=== PATIENT | female | born 1970 | race Caucasian/White ===

== ENCOUNTER → 2019-11-25 14:58 | Outpatient (BNVA) | payer MEDICAID, SELFPAY | PROVIDERS: Visit Provider Nurse Practitioner Family | DX: Z01.818 Encounter for other preprocedural examination (principal) | CPT/HCPCS: 99203 ==

== ENCOUNTER 2019-12-22 22:31 | Emergency (ER) | payer MEDICAID, SELFPAY ==
[2019-12-22 22:50] VITALS: BP 143/82; PULSE 89; RESP 16; TEMP 37.7; O2SAT 98; BMI 32.3
[2019-12-22 23:10] LABS: Glucose Urine UA NEG (NEG); Leukocyte Esterase Urine 2+ (NEG); Nitrite Urine NEG (NEG); PH 6.5 (5.0-8.0); Specific Gravity - Urine 1.015 (1.005-1.025); Urine Blood 3+ (NEG); Urine Ketones NEG (NEG); Urine Protein TRACE MG/DL (NEG-TRACE)
[2019-12-22 23:11] LABS: Appearance Urine HAZY; Color Urine YELLOW
[2019-12-22 23:25] LABS: Squamous Epithelial Cell Urine TRACE /LPF; WBC Urine TNTC /HPF (0-4)
[2019-12-23 00:29] LABS: MANUAL DIFF FLAG NO
--- NOTE | 2019-12-23 00:52 | PC.NURSE ---
MD at bedside with decorating instructor.
[2019-12-23 00:55] LABS: Alanine Aminotransferase 33 U/L (0-31); Albumin Level 4.5 g/dL (3.5-5.0); Alkaline Phosphatase 105 U/L (39-117); Anion Gap 13 (12-20); Aspartate Amino Transferase 26 U/L (5-31); Basophils Percent Auto 0.4 % (0-2); Bilirubin Total 0.4 mg/dL (0.0-1.0); Blood Urea Nitrogen 14 mg/dL (9-16); Calcium 9.6 mg/dL (8.4-10.2); Carbon Dioxide 29 mmol/L (22-29); Chloride 99 mmol/L (96-108); Creatinine Clr Calc Pharmacy 84.8; Eosinophils Absolute Auto 0.1 X10*3/uL (0.0-0.4); Eosinophils Percent Auto 1.8 % (0-4); Estimated Glomerular Filt Rate > 60; Glucose Random 100 mg/dL (60-115); Hematocrit 38.8 % (37-47); Hemoglobin 12.9 g/dl (12.0-16.0); Imm Gran Abs Auto 0.01 X10*3/uL (0.00-0.03); Imm Gran Pct Auto 0.1 % (0.0-0.4); Mean Corpuscular HGB Conc 33.2 g/dl (31.0-35.0); Mean Corpuscular Hemoglobin 29.9 pg (27.0-33.0); Mean Platelet Volume 8.9 fL (9.4-12.3); Monocytes Absolute Auto 0.5 X10*3/uL (0.1-1.2); Monocytes Percent Auto 6.7 % (2-11); Neutrophils Absolute Auto 4.7 X10*3/uL (2.0-8.3); Platelet Count 298 X10*3/uL (160-400); Potassium 3.6 mmol/l (3.3-5.1); Red Blood Count 4.31 X10*6/uL (4.20-5.50); Red Cell Distribution Width 13.2 % (11.0-16.0); Sodium 137 mmol/L (135-145); Total Protein 7.8 g/dL (6.5-8.0); White Blood Count 7.3 X10*3/uL (4.8-10.8)
[2019-12-23 00:58] VITALS: BP 128/80; PULSE 80; RESP 16; TEMP 37.1; O2SAT 99
--- NOTE | 2019-12-23 00:58 | ED_ITS ---
HPI - Female Genitourinary General Chief complaint: Urogenital-Female Stated complaint: blood in urine Time Seen by Provider: 12/23/19 00:18 Source: patient and director of corporate sales Mode of arrival: ambulatory Limitations: no limitations History of Present Illness HPI Narrative: This is a 49-year-old female who presents with 3 days pain on urination that is associated with observed blood but she denies any back pain, fevers, chills, nausea, vomiting, vaginal discharge, diarrhea. Related Data Home Medications Medication Instructions Recorded Confirmed chlorthalidone 25 mg tablet 25 mg PO DAILY 11/25/19 11/25/19 loratadine 10 mg tablet 10 mg PO DAILY 11/25/19 11/25/19 omeprazole 20 mg capsule,delayed 20 mg PO DAILY 11/25/19 11/25/19 release Previous Rx's Medication Instructions Recorded peg 3350-electrolytes 227.1 240 ml PO Q10M #1 ea 11/26/19 gram-21.5 gram-6.36gram oral powder packet ciprofloxacin HCl [Cipro] 500 mg PO Q12H 7 Days #14 tab 12/23/19 phenazopyridine [Pyridium] 200 mg PO TID #6 tab 12/23/19 Allergies Allergy/AdvReac Type Severity Reaction Status Date / Time No Known Allergies Allergy Verified 12/22/19 22:50 [No Known Allergies*] Review of Systems Review of Systems: Pertinent positives and negatives as stated in HPI 10 point review of systems is otherwise negative. [facility] Past Medical History Source: nursing notes reviewed Medical History GERD (gastroesophageal reflux disease) HTN (hypertension) Surgical History History of cholecystectomy Hx of section Hx of tubal ligation Family History Family History Mother HX: breast cancer Hx of diabetes mellitus Father No problems noted. Maternal Aunt Cancer Hypothyroidism Heart disease Social History Social History Household Members: Spouse Alcohol intake: never Smoking Status: Former smoker Advance Directives: No service: No Current occupational status: unemployed Physical Exam Vital Signs: Vital Signs: Last Vital Signs Temp 98.8 F 12/23/19 00:58 Pulse 80 12/23/19 00:58 Resp 16 12/23/19 00:58 BP 128/80 12/23/19 00:58 Pulse Ox 99 12/23/19 00:58 Body Mass Index 32.3 VITAL SIGNS: Reviewed. GENERAL: Well developed, well nourished, in no acute distress. HEAD: Normocephalic/atraumatic, EYES: PERRLA, EOMI intact without pain, no nystagmus/pallor/icterus noted EARS: Ext canals without abnormality, TMs non-bulging and non-erythematous NOSE: Nares patent bilateral OROPHARYNX: no oral lesions noted, posterior pharynx clear and non-erythematous without noted tonsillar enlargement/erythema/exudates NECK: Supple, no adenopathy LUNGS: Normal breath sounds. No adventitious sounds or accessory muscle use. SpO2<99> CARDIOVASCULAR: Regular rate and rhythm without noted murmurs, no JVD or lower extremity edema. ABDOMEN: Soft, non-tender, non-distended with bowel sounds. No rigidity. No guarding. No palpable masses or hernias noted MUSCULOSKELETAL: No tenderness, deformities, or effusions noted on gross inspection. EXTREMITIES: No cyanosis, clubbing or edema. SKIN: Inspection of the skin reveals no rashes, ulcerations, jaundice, pallor, or petechiae. NEUROLOGIC: Alert and oriented x 4. Strength and sensation to light touch were grossly intact x 4. Course Course Course Narrative: This is a 49-year-old female with history and clinical presentation most consistent with UTI, vaginitis, but doubt diverticulitis /appendicitis /renal colic. Review of urinalysis is grossly positive for blood /leukocyte esterase /wbc's. otherwise, review of other investigations is negative for any acute findings. MDM - Female Genitourinary Lab Data Result diagrams: 12/23/19 00:21 12/23/19 00:21 Labs: Lab Results 12/22/19 12/23/19 12/23/19 Range/Units 23:03 00:21 00:21 WBC 7.3 (4.8-10.8) X10*3/uL RBC 4.31 (4.20-5.50) X10*6/uL Hgb 12.9 (12.0-16.0) g/dl Hct 38.8 (37-47) % MCV 90.0 (80-98) fL MCH 29.9 (27.0-33.0) pg MCHC 33.2 (31.0-35.0) g/dl RDW 13.2 (11.0-16.0) % Plt Count 298 (160-400) X10*3/uL MPV 8.9 L (9.4-12.3) fL Immature Gran % (Auto) 0.1 (0.0-0.4) % Neut % (Auto) 64.0 (45-73) % Lymph % (Auto) 27.0 (20-40) % [place] % (Auto) 6.7 (2-11) % Eos % (Auto) 1.8 (0-4) % Baso % (Auto) 0.4 (0-2) % Lymph # (Auto) 2.0 (1.2-4.9) X10*3/uL [place] # (Auto) 0.5 (0.1-1.2) X10*3/uL Eos # (Auto) 0.1 (0.0-0.4) X10*3/uL Baso # (Auto) 0.0 (0.0-0.2) X10*3/uL Abs Immat Gran (auto) 0.01 (0.00-0.03) X10*3/uL Absolute Neuts (auto) 4.7 (2.0-8.3) X10*3/uL Absolute Nucleated RBC 0.000 (0.0-0.012) X10*3/uL Nucleated RBC % (auto) 0.0 (0.0-0.2) /100WBC Hold Blue Top SEE NOTE Sodium (135-145) mmol/L Potassium (3.3-5.1) mmol/l Chloride (96-108) mmol/L Carbon Dioxide (22-29) mmol/L Anion Gap (12-20) BUN (9-16) mg/dL Creatinine (0.5-1.4) mg/dL Estim Creat Clear Calc Estimated GFR Random Glucose (60-115) mg/dL Calcium (8.4-10.2) mg/dL Total Bilirubin (0.0-1.0) mg/dL AST (5-31) U/L ALT (0-31) U/L Alkaline Phosphatase (39-117) U/L Total Protein (6.5-8.0) g/dL Albumin (3.5-5.0) g/dL Urine Color YELLOW Urine Appearance HAZY Urine pH 6.5 (5.0-8.0) Ur Specific [place] 1.015 (1.005-1.025) Urine Protein TRACE (NEG-TRACE) MG/DL Urine Glucose (UA) NEG (NEG) MG/DL Urine Ketones NEG (NEG) MG/DL Urine Blood 3+ H (NEG) Urine Nitrite NEG (NEG) Ur Leukocyte Esterase 2+ H (NEG) Urine RBC 76-150 H (0) /HPF Urine WBC TNTC H (0-4) /HPF Ur Squamous Epith Cells TRACE /LPF Urine Bacteria NONE /LPF 12/23/19 Range/Units 00:21 WBC (4.8-10.8) X10*3/uL RBC (4.20-5.50) X10*6/uL Hgb (12.0-16.0) g/dl Hct (37-47) % MCV (80-98) fL MCH (27.0-33.0) pg MCHC (31.0-35.0) g/dl RDW (11.0-16.0) % Plt Count (160-400) X10*3/uL MPV (9.4-12.3) fL Immature Gran % (Auto) (0.0-0.4) % Neut % (Auto) (45-73) % Lymph % (Auto) (20-40) % [place] % (Auto) (2-11) % Eos % (Auto) (0-4) % Baso % (Auto) (0-2) % Lymph # (Auto) (1.2-4.9) X10*3/uL [place] # (Auto) (0.1-1.2) X10*3/uL Eos # (Auto) (0.0-0.4) X10*3/uL Baso # (Auto) (0.0-0.2) X10*3/uL Abs Immat Gran (auto) (0.00-0.03) X10*3/uL Absolute Neuts (auto) (2.0-8.3) X10*3/uL Absolute Nucleated RBC (0.0-0.012) X10*3/uL Nucleated RBC % (auto) (0.0-0.2) /100WBC Hold Blue Top Sodium 137 (135-145) mmol/L Potassium 3.6 (3.3-5.1) mmol/l Chloride 99 (96-108) mmol/L Carbon Dioxide 29 (22-29) mmol/L Anion Gap 13 (12-20) BUN 14 (9-16) mg/dL Creatinine 0.90 (0.5-1.4) mg/dL Estim Creat Clear Calc 84.8 Estimated GFR > 60 Random Glucose 100 (60-115) mg/dL Calcium 9.6 (8.4-10.2) mg/dL Total Bilirubin 0.4 (0.0-1.0) mg/dL AST 26 (5-31) U/L ALT 33 H (0-31) U/L Alkaline Phosphatase 105 (39-117) U/L Total Protein 7.8 (6.5-8.0) g/dL Albumin 4.5 (3.5-5.0) g/dL Urine Color Urine Appearance Urine pH (5.0-8.0) Ur Specific [place] (1.005-1.025) Urine Protein (NEG-TRACE) MG/DL Urine Glucose (UA) (NEG) MG/DL Urine Ketones (NEG) MG/DL Urine Blood (NEG) Urine Nitrite (NEG) Ur Leukocyte Esterase (NEG) Urine RBC (0) /HPF Urine WBC (0-4) /HPF Ur Squamous Epith Cells /LPF Urine Bacteria /LPF Discharge Plan Discharge Clinical Impression: Urinary tract infection Qualifiers: Urinary tract infection type: acute cystitis Hematuria presence: with hematuria Qualified Code(s): N30.01 - Acute cystitis with hematuria Patient Disposition: Home, Self-Care Instructions: Urinary Tract Infection in Women (ED) Additional Instructions: 1. Tylenol 1000 mg, por v?a oral, cada 6 horas seg?n sea necesario para controlar el dolor. No exceda los 4000 mg en 24 horas. 2. ibuprofeno 400 mg, por v?a oral con leche o alimentos, cada 6 horas seg?n sea necesario para controlar el dolor. 3. Incrementar la hidrataci?n de los fluidos especialmente con agua. El paciente y / o la gareth reconocen kirsten comprendido los resultados (seg?n corresponda), el diagn?stico, el plan de tratamiento, la necesidad de seguimiento y los s?ntomas que deber?an impulsar el regreso a la silvio de emergencias. Prescriptions: New ciprofloxacin HCl [Cipro] 500 mg tablet 500 mg PO Q12H 7 Days Qty: 14 RF: 0 phenazopyridine [Pyridium] 200 mg tablet 200 mg PO TID Qty: 6 RF: 0 No Action chlorthalidone 25 mg tablet 25 mg PO DAILY RF: 0 omeprazole 20 mg capsule,delayed release(DR/EC) 20 mg PO DAILY RF: 0 loratadine [Allergy Relief (loratadine)] 10 mg tablet 10 mg PO DAILY RF: 0 Golytely 227.1-21.5-6.36 gram powder in packet 240 ml PO Q10M Qty: 1 RF: 0 Referrals: Physician,Unknown [Primary Care Provider] - 2 days ( follow-up UTI) Interventions: ED Discharge Assessment Last Done: 12/23/19 01:22 Discharge Date/Time: 12/23/19 01:24 Print Language: Frisian
[2019-12-23] MEDS: levoFLOXacin 500 MG TABLET PO (01:14)
[2019-12-23] MEDS: Phenazopyridine HCL 200 MG TABLET PO (01:14)
[2019-12-23] MEDS: Acetaminophen 325 MG TABLET 975 MG PO (01:14)
--- NOTE | 2019-12-23 01:15 | PC.NURSE ---
Pt medicated per EMAR, awaiting engraving operator for DC instructions.
== END 2019-12-23 01:24 | disposition home or self-care (01) ==
PROVIDERS: Emergency Provider Student in an Organized Health Care Education/Training Program
DX: N30.01 Acute cystitis with hematuria (principal); R30.0 Dysuria; Z87.891 Personal history of nicotine dependence; Z79.899 Other long term (current) drug therapy
CPT/HCPCS: 36415; 80053; 81001; 85025; 87086; 99283; 99284

== ENCOUNTER 2020-01-22 18:52 | Emergency (ER) | payer MEDICAID, SELFPAY ==
[2020-01-22 19:01] VITALS: BP 118/77; PULSE 105; RESP 18; TEMP 37.3; O2SAT 95; BMI 32.3
--- NOTE | 2020-01-22 19:10 | ED.URI ---
HPI - URI/Sore Throat General Chief Complaint: Upper Respiratory Symptoms Stated Complaint: Flu Like Symptoms Time Seen by Provider: 01/22/20 19:10 Source: patient Mode of arrival: ambulatory Limitations: no limitations History of Present Illness MD elicited complaint: fever and other (headache, body aches) Pertinent past history: other (positive for COVID in June) Onset (ago): day(s) Consistency: constant Severity: similar to previous episodes (feels just like in June when she had COVID) Description of mucous: clear Able to tolerate fluids by mouth: Yes Exacerbating factors: nothing Relieving factors: nothing Associated symptoms: chills, myalgias and headache Treatments prior to arrival: none Related Data Home Medications Medication Instructions Recorded Confirmed chlorthalidone 25 mg tablet 25 mg PO DAILY 11/25/19 11/25/19 loratadine 10 mg tablet 10 mg PO DAILY 11/25/19 11/25/19 omeprazole 20 mg capsule,delayed 20 mg PO DAILY 11/25/19 11/25/19 release Previous Rx's Medication Instructions Recorded peg 3350-electrolytes 227.1 240 ml PO Q10M #1 ea 11/26/19 gram-21.5 gram-6.36gram oral powder packet ciprofloxacin HCl [Cipro] 500 mg PO Q12H 7 Days #14 tab 12/23/19 phenazopyridine [Pyridium] 200 mg PO TID #6 tab 12/23/19 Allergies Allergy/AdvReac Type Severity Reaction Status Date / Time No Known Allergies Allergy Verified 12/22/19 22:50 [No Known Allergies*] Review of Systems Review of Systems: Constitutional : positive Fever, positive Chills, positive fatigue, positive Malaise ENT/Mouth : no sore throat, positive runny nose Eyes: No Discharge Cardiovascular : No Chest Pain, No SOB Respiratory : No Cough, No Sputum Gastrointestinal : No Nausea, No Vomiting, No Diarrhea Genitourinary : No Dysuria, No Urinary Frequency Musculoskeletal : positive Myalgia Skin : No rash Neuro : pos Headache PMFSH Past Medical History Attestation statement: The following information was validated with the patient. Medical History GERD (gastroesophageal reflux disease) HTN (hypertension) Surgical History History of cholecystectomy Hx of section Hx of tubal ligation Family History Family History Mother HX: breast cancer Hx of diabetes mellitus Father No problems noted. Maternal Aunt Cancer Hypothyroidism Heart disease Social History Social History Household Members: Spouse Alcohol intake: never Smoking Status: Former smoker Smoked in Last 30 Days: No Use of substances other than those prescribed or required for medical reasons: No Advance Directives: No Advance Directives Information Provided: No service: No Current occupational status: unemployed Physical Exam Vital Signs: Vital Signs: Last Vital Signs Temp 99.1 F 01/22/20 19:01 Pulse 105 H 01/22/20 19:01 Resp 18 01/22/20 19:01 BP 118/77 01/22/20 19:01 Pulse Ox 95 01/22/20 19:12 Body Mass Index 32.3 Appearance: Alert. Oriented X3. No acute distress. Eyes: Pupils equal, round and reactive to light. ENT: Pharynx normal. Neck: Normal inspection. Neck supple. CVS: Normal heart rate and rhythm. Pulses normal. Chest: has healing pimple without abscess or cellulitis on chest wall Respiratory: No respiratory distress. Breath sounds normal. Abdomen: Soft and non-tender. Skin: Skin warm and dry. Normal skin color. Normal skin turgor. Extremities: No lower extremity edema. No calf ttp Neuro: Oriented X 3. No motor deficit. No sensory deficit. Course Course Course Narrative: negative flu/COVID MDM - URI/Sore Throat MDM Narrative Medical decision making narrative: 49 yo female who was COVID positive in June now comes in today with viral like illness body aches, headaches, fevers x 3 days and states she feels the exact same as she did in June when she had COVID at this time will obtain COVID/flu swab, not toxic, no resp distress, no hypoxia Lab Data Labs: Lab Results 01/22/20 Range/Units 19:16 Coronavirus (PCR) NEGATIVE (Negative) Influenza Type A (PCR) NEGATIVE (Negative) Influenza Type B (PCR) NEGATIVE (Negative) RSV RNA Qual (PCR) NEGATIVE (Negative) Discharge Plan Discharge Clinical Impression: Viral infection Patient Disposition: Home, Self-Care Instructions: Viral Syndrome (ED) Additional Instructions: return to ED for any worsening symptoms or concerns YOUR COVID FLU AND RSV WERE NEGATIVE TODAY Prescriptions: No Action ciprofloxacin HCl [Cipro] 500 mg tablet 500 mg PO Q12H 7 Days Qty: 14 RF: 0 phenazopyridine [Pyridium] 200 mg tablet 200 mg PO TID Qty: 6 RF: 0 chlorthalidone 25 mg tablet 25 mg PO DAILY RF: 0 omeprazole 20 mg capsule,delayed release(DR/EC) 20 mg PO DAILY RF: 0 loratadine [Allergy Relief (loratadine)] 10 mg tablet 10 mg PO DAILY RF: 0 Golytely 227.1-21.5-6.36 gram powder in packet 240 ml PO Q10M Qty: 1 RF: 0 Referrals: Physician,Unknown [Primary Care Provider] - 2 days (if not better) Stand Alone Forms: Work/School Release Print Language: Uzbek
[2020-01-22 19:12] VITALS: O2SAT 95
[2020-01-22] MEDS: Acetaminophen 325 MG TABLET 650 MG PO (19:45)
[2020-01-22 20:05] LABS: Influenza A PCR NEGATIVE (Negative); Influenza B PCR NEGATIVE (Negative); Resp Syncy Virus RNA Qual PCR NEGATIVE (Negative); SARS COV2 PCR INHOUSE NEGATIVE (Negative)
== END 2020-01-22 20:25 | disposition home or self-care (01) ==
PROVIDERS: Emergency Provider Emergency Medicine
DX: B34.9 Viral infection, unspecified (principal); R50.9 Fever, unspecified; R51.9 Headache, unspecified; M79.10 Myalgia, unspecified site; Z20.828 Contact with and (suspected) exposure to other viral communicable diseases; Z87.891 Personal history of nicotine dependence
CPT/HCPCS: 0241U; 99284

== ENCOUNTER 2020-08-04 14:18 | Outpatient (REF) | payer MEDICAID, SELFPAY ==
--- NOTE | ~2020-08-04 | MM_ITS ---
EXAMINATION: MM SCREENING DIGITAL BREAST TOMOSYNTHESIS, BILATERAL CLINICAL INFORMATION: Screening. Asymptomatic. The lifetime risk of breast cancer based on the Tyrer-Cuzick Model is 13.3%. COMPARISON: Mammography: July 30, 2019 and studies dating back to May 04, 2011 TECHNIQUE: Digital breast tomosynthesis is performed in both the craniocaudal and mediolateral oblique views along with computer-aided detection (CAD). Synthesized 2D images are generated from the tomosynthesis. FINDINGS: The breasts are heterogeneously dense, which may obscure small masses (ACR BI-RADS breast composition Category c). There are no significant masses, abnormal calcifications, or other abnormalities. MM/MM tomosynthesis screening BI IMPRESSION: There are no significant changes from prior study. ASSESSMENT: BI-RADS 1: Negative RECOMMENDATION: Routine annual mammography screening. This patient's information was entered into a reminder system with a target due date for their next mammogram.
== END 2020-08-04 14:19 | disposition home or self-care (01) ==
LOC: HO.MAMMO 14:18
PROVIDERS: PCP Family Medicine; Visit Provider Advanced Practice Midwife
DX: Z12.31 Encounter for screening mammogram for malignant neoplasm of breast (principal)
CPT/HCPCS: 77063; 77067

== ENCOUNTER 2020-08-16 18:03 | Emergency (ER) | payer MEDICAID, SELFPAY ==
[2020-08-16 19:54] VITALS: BP 135/75; PULSE 73; RESP 16; TEMP 37; O2SAT 98; BMI 20.8
--- NOTE | 2020-08-16 21:00 | PC.NURSE ---
CALLED PATIENT NO RESPONSE.
== END 2020-08-16 21:00 | disposition left against medical advice (07) ==
LOC: HO.ED 20:52
PROVIDERS: Emergency Provider Emergency Medicine
DX: M79.89 Other specified soft tissue disorders (principal)
CPT/HCPCS: 36415; 80048; 83605; 85025; 85652; 86140; 87040; 99281; 99282; 99285; J1170; J2270; J2543

== ENCOUNTER 2020-08-16 23:28 | Inpatient (IN) | payer MEDICAID, SELFPAY ==
[2020-08-16 23:33] VITALS: BP 143/84; PULSE 77; RESP 16; TEMP 36.7; O2SAT 98; BMI 33.1
[2020-08-17] VITALS (9 sets, daily range): BP systolic 98–138; BP diastolic 45–86; PULSE 64–79; RESP 16–18; TEMP 36–37.1; O2SAT 94–99
[2020-08-17 00:58] LABS: MANUAL DIFF FLAG NO
[2020-08-17 01:01] LABS: Basophils Percent Auto 0.5 % (0-2); Eosinophils Absolute Auto 0.1 X10*3/uL (0.0-0.4); Eosinophils Percent Auto 1.4 % (0-4); Hematocrit 40.3 % (37-47); Hemoglobin 13.7 g/dl (12.0-16.0); Imm Gran Abs Auto 0.02 X10*3/uL (0.00-0.03); Imm Gran Pct Auto 0.2 % (0.0-0.4); Lymphocytes Absolute Auto 2.2 X10*3/uL (1.2-4.9); Lymphocytes Percent Auto 24.6 % (20-40); Mean Corpuscular Hemoglobin 30.4 pg (27.0-33.0); Mean Corpuscular Volume 89.6 fL (80-98); Mean Platelet Volume 8.6 fL (9.4-12.3); Monocytes Absolute Auto 0.6 X10*3/uL (0.1-1.2); Monocytes Percent Auto 6.9 % (2-11); Neutrophils Absolute Auto 5.9 X10*3/uL (2.0-8.3); Neutrophils Percent Auto 66.4 % (45-73); Platelet Count 331 X10*3/uL (160-400); Red Cell Distribution Width 13.5 % (11.0-16.0); White Blood Count 8.8 X10*3/uL (4.8-10.8)
[2020-08-17 01:15] LABS: Lactic Acid 0.7 mmol/L (0.5-2.0)
[2020-08-17 01:32] LABS: Anion Gap 16 (12-20); Blood Urea Nitrogen 12 mg/dL (9-16); Calcium 10.2 mg/dL (8.4-10.2); Carbon Dioxide 26 mmol/L (22-29); Chloride 101 mmol/L (96-108); Estimated Glomerular Filt Rate > 60; Glucose Random 100 mg/dL (60-115); Potassium 3.5 mmol/L (3.3-5.1); Sodium 139 mmol/L (135-145)
[2020-08-17 01:36] LABS: Erythrocyte Sedimentation Rate 60 MM/HR (0-20)
--- NOTE | 2020-08-17 01:54 | ED.ANIMALBIT ---
HPI - Animal Bite General Chief Complaint: Animal Bite Stated Complaint: general medical, pt lwt previously Time Seen by Provider: 08/16/20 23:58 Source: patient Mode of arrival: ambulatory Limitations: no limitations History of Present Illness HPI narrative: Patient comes emergency room complaining of a dog bites to the dorsal aspect of the 5th finger on the right hand. Patient states that she was at home with her dog grooming her, the dog bit her in the hand yesterday. The patient states that she immediately washed her hands and port alcohol over it. Today she came to the hospital because the hand is becoming more swollen, and tender to palpation. Patient has no fever, no chills, patient complaining of pus drainage from the pinky finger. The patient states that her dog is up-to-date with immunizations. MD complaint: animal bite Related Data Home Medications Medication Instructions Recorded Confirmed chlorthalidone 25 mg tablet 25 mg PO DAILY 11/25/19 11/25/19 loratadine 10 mg tablet 10 mg PO DAILY 11/25/19 11/25/19 omeprazole 20 mg capsule,delayed 20 mg PO DAILY 11/25/19 11/25/19 release Previous Rx's Medication Instructions Recorded peg 3350-electrolytes 227.1 240 ml PO Q10M #1 ea 11/26/19 gram-21.5 gram-6.36gram oral powder packet ciprofloxacin HCl [Cipro] 500 mg PO Q12H 7 Days #14 tab 12/23/19 phenazopyridine [Pyridium] 200 mg PO TID #6 tab 12/23/19 Allergies Allergy/AdvReac Type Severity Reaction Status Date / Time No Known Allergies Allergy Verified 08/16/20 23:33 [No Known Allergies*] Review of Systems Review of Systems: Constitutional : No Weight loss, No Fever, No Chills, No Night Sweats, No Fatigue, No Malaise ENT/Mouth : No Hearing loss, No Ear Pain, No Nasal Congestion, No Sinus Pain, No Hoarseness, No sore throat, No Rhinorrhea, No Swallowing Difficulty Eyes: No Eye Pain, No Swelling, No Redness, No Foreign Body, No Discharge, No Vision Changes Cardiovascular : No Chest Pain, No SOB, No Dyspnea on Exertion, No Orthopnea, No Edema, No Palpitations Respiratory : No Cough, No Sputum, No Wheezing, No Smoke Exposure, No Dyspnea Gastrointestinal : No Nausea, No Vomiting, No Diarrhea, No Constipation, No abdominal Pain, No Hematochezia, No Melena Genitourinary : no irregular bleeding, No Dysuria, No Urinary Frequency, No Hematuria, No Urinary Incontinence, No Urgency, No Flank Pain, No Urinary Flow Changes, No Hesitancy Musculoskeletal : No joint pain, No Myalgias, No Joint Swelling Skin : Pus drainage, swelling and erythema from the lateral dorsal aspect of the right hand Neuro : No Weakness, No Numbness, No Paresthesias, No Loss of Consciousness, No Dizziness, No Headache Psych : No Anxiety/Panic, No Depression, No SI/HI/AH/VH, No Social Issues, Heme/Lymph: No Bruising, No Bleeding,No Lymphadenopathy Endocrine : No Polyuria, No Polydipsia, No Temperature Intolerance [facility] Past Medical History Medical History GERD (gastroesophageal reflux disease) HTN (hypertension) Surgical History History of cholecystectomy Hx of section Hx of tubal ligation Family History Family History Mother HX: breast cancer Hx of diabetes mellitus Father No problems noted. Maternal Aunt Cancer Hypothyroidism Heart disease Social History Social History Household Members: Spouse Alcohol intake: never Advance Directives: No Advance Directives Information Provided: No service: No Current occupational status: unemployed Physical Exam Vital Signs: Vital Signs: Last Vital Signs Temp 98.1 F 08/16/20 23:33 Pulse 77 08/16/20 23:33 Resp 16 08/16/20 23:33 BP 143/84 H 08/16/20 23:33 Pulse Ox 98 08/16/20 23:33 Body Mass Index 33.1 Appearance: Alert. Oriented X3. No acute distress. Eyes: Pupils equal, round and reactive to light. ENT: Pharynx normal. Neck: Normal inspection. Neck supple. No lymph nodes noted. No crepitus CVS: Normal heart rate and rhythm. Pulses normal. Normal S1 and S2 Respiratory: No respiratory distress. Breath sounds normal. No Wheezing. No rales Abdomen: Soft and nontender. No rigidity. No distention. good BS x4 Skin: Right hand dorsal aspect lateral aspect, 0.5 cm punctured wound, draining pus, dorsal aspect of the hand is swollen and erythematous Extremities: No lower extremity edema. No lower extremity edema. No Lacerations. No Rash Neuro: Oriented X 3. No motor deficit. No sensory deficit. Moving all extermities. No slurred speech. Course Course Course Narrative: When patient arrived to the emergency room, the hand was not erythematous, is mildly swollen, throughout the last 2-3 hours the swelling and erythema progressed significantly. The puncture wound was unroofed with a 16 gauge needle, pus was drained. Patient is to flex and extend the 5th finger but hurts doing so. At this time, tenosynovitis is not suspected. Patient does not have and significant white blood cell count, however the erythema is expanding fairly fast and the finger is draining pus. I discussed the above-mentioned with Dr. mandy beckman, patient will be admitted to the hospital. MDM - Animal Bite Lab Data Result diagrams: 08/17/20 00:47 08/17/20 00:47 Labs: Lab Results 08/17/20 08/17/20 08/17/20 Range/Units 00:47 00:47 00:47 WBC 8.8 (4.8-10.8) X10*3/uL RBC 4.50 (4.20-5.50) X10*6/uL Hgb 13.7 (12.0-16.0) g/dl Hct 40.3 (37-47) % MCV 89.6 (80-98) fL MCH 30.4 (27.0-33.0) pg MCHC 34.0 (31.0-35.0) g/dl RDW 13.5 (11.0-16.0) % Plt Count 331 (160-400) X10*3/uL MPV 8.6 L (9.4-12.3) fL Immature Gran % (Auto) 0.2 (0.0-0.4) % Neut % (Auto) 66.4 (45-73) % Lymph % (Auto) 24.6 (20-40) % [place] % (Auto) 6.9 (2-11) % Eos % (Auto) 1.4 (0-4) % Baso % (Auto) 0.5 (0-2) % Lymph # (Auto) 2.2 (1.2-4.9) X10*3/uL [place] # (Auto) 0.6 (0.1-1.2) X10*3/uL Eos # (Auto) 0.1 (0.0-0.4) X10*3/uL Baso # (Auto) 0.0 (0.0-0.2) X10*3/uL Abs Immat Gran (auto) 0.02 (0.00-0.03) X10*3/uL Absolute Neuts (auto) 5.9 (2.0-8.3) X10*3/uL Absolute Nucleated RBC 0.000 (0.0-0.012) X10*3/uL Nucleated RBC % (auto) 0.0 (0.0-0.2) /100WBC ESR (0-20) MM/HR Sodium 139 (135-145) mmol/L Potassium 3.5 (3.3-5.1) mmol/L Chloride 101 (96-108) mmol/L Carbon Dioxide 26 (22-29) mmol/L Anion Gap 16 (12-20) BUN 12 (9-16) mg/dL Creatinine 0.82 (0.5-1.4) mg/dL Estim Creat Clear Calc 91.0 Estimated GFR > 60 Random Glucose 100 (60-115) mg/dL Lactic Acid 0.7 (0.5-2.0) mmol/L Calcium 10.2 D (8.4-10.2) mg/dL C-Reactive Protein 5.20 H (< or = 0.50) mg/dL 08/17/20 Range/Units 00:47 WBC (4.8-10.8) X10*3/uL RBC (4.20-5.50) X10*6/uL Hgb (12.0-16.0) g/dl Hct (37-47) % MCV (80-98) fL MCH (27.0-33.0) pg MCHC (31.0-35.0) g/dl RDW (11.0-16.0) % Plt Count (160-400) X10*3/uL MPV (9.4-12.3) fL Immature Gran % (Auto) (0.0-0.4) % Neut % (Auto) (45-73) % Lymph % (Auto) (20-40) % [place] % (Auto) (2-11) % Eos % (Auto) (0-4) % Baso % (Auto) (0-2) % Lymph # (Auto) (1.2-4.9) X10*3/uL [place] # (Auto) (0.1-1.2) X10*3/uL Eos # (Auto) (0.0-0.4) X10*3/uL Baso # (Auto) (0.0-0.2) X10*3/uL Abs Immat Gran (auto) (0.00-0.03) X10*3/uL Absolute Neuts (auto) (2.0-8.3) X10*3/uL Absolute Nucleated RBC (0.0-0.012) X10*3/uL Nucleated RBC % (auto) (0.0-0.2) /100WBC ESR 60 H (0-20) MM/HR Sodium (135-145) mmol/L Potassium (3.3-5.1) mmol/L Chloride (96-108) mmol/L Carbon Dioxide (22-29) mmol/L Anion Gap (12-20) BUN (9-16) mg/dL Creatinine (0.5-1.4) mg/dL Estim Creat Clear Calc Estimated GFR Random Glucose (60-115) mg/dL Lactic Acid (0.5-2.0) mmol/L Calcium (8.4-10.2) mg/dL C-Reactive Protein (< or = 0.50) mg/dL Discharge Plan Discharge Clinical Impression: Cellulitis, Dog bite Patient Disposition: Admitted As Inpatient Prescriptions: No Action ciprofloxacin HCl [Cipro] 500 mg tablet 500 mg PO Q12H 7 Days Qty: 14 RF: 0 phenazopyridine [Pyridium] 200 mg tablet 200 mg PO TID Qty: 6 RF: 0 chlorthalidone 25 mg tablet 25 mg PO DAILY RF: 0 omeprazole 20 mg capsule,delayed release(DR/EC) 20 mg PO DAILY RF: 0 loratadine [Allergy Relief (loratadine)] 10 mg tablet 10 mg PO DAILY RF: 0 Golytely 227.1-21.5-6.36 gram powder in packet 240 ml PO Q10M Qty: 1 RF: 0
[2020-08-17] MEDS: Piperacillin Sodium/Tazobactam 3.375 GM in 0.9 % Sodium Chloride 50 ML IV ×4 (02:30→21:17)
[2020-08-17] MEDS: 0.9 % Sodium Chloride 1,000 ML 999 ML IVCONT (02:35)
--- NOTE | 2020-08-17 03:30 | PC.NURSE ---
pt crying in pain. hospitalist aware and ordered pain meds for pt. Pt remains alert, respiraitons easy,n/l. skin w/d. Pt awaiting for room assignment. will continue to monitor pt.
[2020-08-17] MEDS: Morphine Sulfate 4 MG/ML CARTRIDGE IVPUSH (03:41)
--- NOTE | 2020-08-17 05:25 | P.HPHOSP_ITS ---
History of Present Illness Date of Service: 08/17/20 Chief Complaint: Dog bite 49-year-old female with past medical history of hypertension who presents to the hospital with complaints of dog bite. Patient reports that her dog bit her on Sunday, in her right small finger, she started developing significant pain, as well as swelling of her right arm and decided to come to the hospital. Patient has a difficulty moving her hand due to the pain, denies any fever nausea vomiting no abdominal pain no chest pain, no shortness of breath, no lumps under her armpits, no trouble with moving her elbow. Denies any urinary symptoms and no lower extremity edema. No numbness weakness or tingling. On arrival to the ED patient hemodynamically stable with no significant abnormal vitals except for a heart rate of 105, blood pressure stable Labs are significant for WBC count of 8.8 otherwise unremarkable. She has an elevated ESR of 60 as well as CRP of 5.2. During her ED course, erythema increased from around her right small finger moving up to her wrist patient is also having significant pain intractable to pain medications Review of Systems Review of Systems: Yes all other systems are reviewed and are negative [facility] Medical History GERD (gastroesophageal reflux disease) HTN (hypertension) Family History Mother HX: breast cancer Hx of diabetes mellitus Father No problems noted. Maternal Aunt Cancer Hypothyroidism Heart disease Surgical History History of cholecystectomy Hx of section Hx of tubal ligation Social History Household Members: Spouse Alcohol intake: never Advance Directives: No Advance Directives Information Provided: No service: No Current occupational status: unemployed Meds Allergies Allergy/AdvReac Type Severity Reaction Status Date / Time No Known Allergies Allergy Verified 08/16/20 23:33 [No Known Allergies*] Active Medications: Current Medications Generic Name Dose Route Start Last Admin Trade Name Freq PRN Reason Stop Dose Admin Acetaminophen 650 mg 08/17/20 01:53 Acetaminophen 325 Mg Tablet PO Q6H PRN Pain, Mild (Pain Scale 1-3) Piperacillin Sod/Tazobactam 50 mls @ 100 mls/hr 08/17/20 08:00 Sod 3.375 gm/ Sodium Chloride IV Q6H COUNTS INCLUDE 234 BEDS AT THE [facility] Morphine Sulfate 4 mg 08/17/20 03:27 08/17/20 03:41 Morphine Sulfate 4 Mg/Ml Cartridge IVPUSH 4 mg Q4H PRN Administration Pain, Severe (Pain Scale 7-10) Ondansetron HCl 4 mg 08/17/20 01:53 Ondansetron Hcl 4 Mg/2 Ml Vial IVPUSH Q8H PRN Nausea and Vomiting Sodium Chloride 3 ml 08/17/20 08:00 0.9 % Sodium Chloride Flush 3 Ml Syringe IVFLUSH QSHIFT COUNTS INCLUDE 234 BEDS AT THE [facility] Home Medications Medication Instructions Recorded Confirmed Last Taken Type chlorthalidone 25 mg tablet 25 mg PO DAILY 11/25/19 08/17/20 Unknown History loratadine 10 mg tablet 10 mg PO DAILY 11/25/19 08/17/20 Unknown History omeprazole 20 mg capsule,delayed 20 mg PO DAILY 11/25/19 08/17/20 Unknown His tory release Physical Exam Vital Signs and Narrative: Vital Signs: Last Vital Signs Temp 98.8 F 08/17/20 01:56 Pulse 67 08/17/20 03:30 Resp 18 08/17/20 03:30 BP 126/78 08/17/20 03:30 Pulse Ox 99 08/17/20 03:30 Body Mass Index 33.1 Const: General: cooperative and no acute distress Orientation/consciousness: patient oriented x3 Eyes: General: appearance normal, both eyes and all related structures Resp: Effort & Inspection: normal respiratory effort and able to speak in complete sentences Auscultation: clear to auscultation bilaterally Cardio: Rate: regular rate Rhythm: regular rhythm GI: Palpation (GI): Soft to palpation Auscultation: normal bowel sounds Skin: General skin exam: no rashes or lesions noted Neuro: General: patient oriented x3 Cognition (Neuro): normal cognition Extrem: Other: Patient has a small cut on her right small finger, erythema, warmth, edema, minimal range of motion due to significant pain General: Yes normal to inspection and Yes no pedal edema Results Labs CBC and Chem 7: 08/17/20 00:47 08/17/20 00:47 Labs: Laboratory Results - last 24 hr 08/17/20 08/17/20 08/17/20 00:47 00:47 00:47 MCV 89.6 MCH 30.4 MCHC 34.0 RDW 13.5 Plt Count 331 MPV 8.6 L Immature Gran % (Auto) 0.2 Neut % (Auto) 66.4 Lymph % (Auto) 24.6 [place] % (Auto) 6.9 Eos % (Auto) 1.4 Baso % (Auto) 0.5 Lymph # (Auto) 2.2 [place] # (Auto) 0.6 Eos # (Auto) 0.1 Baso # (Auto) 0.0 Abs Immat Gran (auto) 0.02 Absolute Neuts (auto) 5.9 Absolute Nucleated RBC 0.000 Nucleated RBC % (auto) 0.0 ESR Anion Gap 16 Estim Creat Clear Calc 91.0 Estimated GFR > 60 Random Glucose 100 Lactic Acid 0.7 Calcium 10.2 D C-Reactive Protein 5.20 H 08/17/20 00:47 MCV MCH MCHC RDW Plt Count MPV Immature Gran % (Auto) Neut % (Auto) Lymph % (Auto) [place] % (Auto) Eos % (Auto) Baso % (Auto) Lymph # (Auto) [place] # (Auto) Eos # (Auto) Baso # (Auto) Abs Immat Gran (auto) Absolute Neuts (auto) Absolute Nucleated RBC Nucleated RBC % (auto) ESR 60 H Anion Gap Estim Creat Clear Calc Estimated GFR Random Glucose Lactic Acid Calcium C-Reactive Protein Assessment and Plan (1) Cellulitis: Status: Acute (2) Dog bite: Status: Acute (3) Intractable pain: Status: Acute This is a 49-year-old female with past medical history of hypertension who presents to the hospital with complaints of pain in her right hand due to a dog bite # cellulitis - secondary to dog bite - no systemic toxicity - has progressively worsening erythema, warmth, edema, and decreased range of motion of her hand due to pain - will start her on Zosyn to cover dog bite - follow cultures # dog bite - antibiotics as above - follow cultures - patient less likely to have rabies as it is the patient's own dog and is fully vaccinated # intractable pain - pain resistant to morphine, will start her on Dilaudid # hypertension - stable - continue home antihypertensives DVT prophylaxis: Early ambulation Quality Stroke Does the patient have a stroke diagnosis?: No VTE Prior VTE?: No VTE Risk Level:: Medical - low VTE Device Contraindication: Treatment Not Indicated VTE Drug Contraindication: Treatment Not Indicated
[2020-08-17] MEDS: HYDROmorphone HCl 0.5 MG/0.5 ML SYRINGE IVPUSH (06:00)
[2020-08-17] MEDS: 0.9 % Sodium Chloride Flush 3 ML SYRINGE IVFLUSH ×3 (08:00→21:23)
[2020-08-17] MEDS: Loratadine 10 MG TABLET PO (08:57)
[2020-08-17] MEDS: hydroCHLOROthiazide 25 MG TABLET PO (08:57)
[2020-08-17] MEDS: Omeprazole 20 MG CAPSULE.DR PO (08:57)
--- NOTE | 2020-08-17 09:10 | PC.NURSE ---
Patient is resting quietly in bed with eyes closed in no distress. Pt voices no complaints at this time.
--- NOTE | 2020-08-17 10:58 | PC.NURSE ---
Patient is asleep in bed in no distress currently. Respirations are even and nonlabored
--- NOTE | 2020-08-17 11:21 | HO.PM.IMPN ---
Subjective Subjective Date of Service: 08/17/20 Interval History: Seen in f/u for dog bite, hand is better but remain swollen--see picture Review of Systems Gen: no fever Resp: no sob, no cough CV: no chest, no ALLRED, no leg edema GI: No n/v, no abd pain Neuro: No confusion Swollen hand Physical Exam Vital Signs: Vital Signs: Last Vital Signs Temp 98 F 08/17/20 09:02 Pulse 65 08/17/20 09:02 Resp 16 08/17/20 09:02 BP 101/46 L 08/17/20 09:02 Pulse Ox 94 08/17/20 09:02 Body Mass Index 33.1 Const: General: cooperative and no acute distress Orientation/consciousness: patient oriented x3 Eyes: General: appearance normal, both eyes and all related structures Resp: Effort & Inspection: normal respiratory effort and able to speak in complete sentences Auscultation: clear to auscultation bilaterally Cardio: Rate: regular rate Rhythm: regular rhythm GI: Palpation (GI): Soft to palpation Auscultation: normal bowel sounds Skin: Other: Neuro: General: patient oriented x3 Cognition (Neuro): normal cognition Extrem: Other: Patient has a small cut on her right small finger, erythema, warmth, edema, minimal range of motion due to significant pain General: Yes normal to inspection and Yes no pedal edema Objective Data Current Medications Generic Name Dose Route Start Last Admin Trade Name Freq PRN Reason Stop Dose Admin Acetaminophen 650 mg 08/17/20 01:53 Acetaminophen 325 Mg Tablet PO Q6H PRN Pain, Mild (Pain Scale 1-3) Hydrochlorothiazide 25 mg 08/17/20 09:00 08/17/20 08:57 Hydrochlorothiazide 25 Mg Tablet PO 25 mg DAILY RADHA Administration Hydromorphone HCl 0.5 mg 08/17/20 05:24 08/17/20 06:00 Hydromorphone Hcl 0.5 Mg/0.5 Ml Syringe IVPUSH 0.5 mg Q4H PRN Administration Pain, Severe (Pain Scale 7-10) Piperacillin Sod/Tazobactam 50 mls @ 100 mls/hr 08/17/20 08:00 08/17/20 09:37 Sod 3.375 gm/ Sodium Chloride IV Infused Q6H RADHA Infusion Loratadine 10 mg 08/17/20 09:00 08/17/20 08:57 Loratadine 10 Mg Tablet PO 10 mg DAILY RADHA Administration Morphine Sulfate 4 mg 08/17/20 03:27 08/17/20 03:41 Morphine Sulfate 4 Mg/Ml Cartridge IVPUSH 4 mg Q4H PRN Administration Pain, Severe (Pain Scale 7-10) Omeprazole 20 mg 08/17/20 09:00 08/17/20 08:57 Omeprazole 20 Mg Capsule.Dr PO 20 mg DAILY RADHA Administration Ondansetron HCl 4 mg 08/17/20 01:53 Ondansetron Hcl 4 Mg/2 Ml Vial IVPUSH Q8H PRN Nausea and Vomiting Sodium Chloride 3 ml 08/17/20 08:00 0.9 % Sodium [facility]ide [facility] & Chem 7: 08/17/20 00:47 08/17/20 00:47 Labs: Laboratory Results - last 24 hr 08/17/20 08/17/20 08/17/20 00:47 00:47 00:47 WBC 8.8 RBC 4.50 Hgb 13.7 Hct 40.3 MCV 89.6 MCH 30.4 MCHC 34.0 RDW 13.5 Plt Count 331 MPV 8.6 L Immature Gran % (Auto) 0.2 Neut % (Auto) 66.4 Lymph % (Auto) 24.6 [place] % (Auto) 6.9 Eos % (Auto) 1.4 Baso % (Auto) 0.5 Lymph # (Auto) 2.2 [place] # (Auto) 0.6 Eos # (Auto) 0.1 Baso # (Auto) 0.0 Abs Immat Gran (auto) 0.02 Absolute Neuts (auto) 5.9 Absolute Nucleated RBC 0.000 Nucleated RBC % (auto) 0.0 ESR Sodium 139 Potassium 3.5 Chloride 101 Carbon Dioxide 26 Anion Gap 16 BUN 12 Creatinine 0.82 Estim Creat Clear Calc 91.0 Estimated GFR > 60 Random Glucose 100 Lactic Acid 0.7 Calcium 10.2 D C-Reactive Protein 5.20 H 08/17/20 00:47 WBC RBC Hgb Hct MCV MCH MCHC RDW Plt Count MPV Immature Gran % (Auto) Neut % (Auto) Lymph % (Auto) [place] % (Auto) Eos % (Auto) Baso % (Auto) Lymph # (Auto) [place] # (Auto) Eos # (Auto) Baso # (Auto) Abs Immat Gran (auto) Absolute Neuts (auto) Absolute Nucleated RBC Nucleated RBC % (auto) ESR 60 H Sodium Potassium Chloride Carbon Dioxide Anion Gap BUN Creatinine Estim Creat Clear Calc Estimated GFR Random Glucose Lactic Acid Calcium C-Reactive Protein Quality Stroke Does the patient have a stroke diagnosis?: No VTE Prior VTE?: No VTE Risk Level:: Medical - low VTE Device Contraindication: Treatment Not Indicated VTE Drug Contraindication: Treatment Not Indicated Assessment and Plan (1) Cellulitis: Status: Acute (2) Dog bite: Status: Acute (3) Intractable pain: Status: Acute Assessment and Plan: 49-year-old female with past medical history of hypertension who presents to the hospital with complaints of pain in her right hand due to a dog bite # cellulitis - secondary to dog bite - no systemic toxicity - has progressively worsening erythema, warmth, edema, and decreased range of motion of her hand due to pain - Zosyn to cover dog bite for one more day, then change to P - follow cultures # dog bite - antibiotics as above - follow cultures - patient less likely to have rabies as it is the patient's own dog and is fully vaccinated # intractable pain - pain resistant to morphine, will start her on Dilaudid # hypertension - stable - continue home antihypertensives DVT prophylaxis: Early ambulation
--- NOTE | 2020-08-17 15:15 | MHC.CM.PN ---
Met with patient and interpreter for the deaf in regards to discharge planning. Patient lives with her sig other, ambualtes independently and had no services prior to being admitted. No services anticipated to be needed because patient is not homebound. PCP is at [facility]. Patient has not received a Covid vaccine. Patient has her vehicle in the ER parking lot and will transport herself home when medically stable. Continue to monitor for d/c needs.
--- NOTE | 2020-08-17 15:57 | PC.NURSE ---
Patient is resting quietly in bed in no distress. Pt swelling to right hand and fingers is improving. Pt is able to move fingers more easily.
--- NOTE | 2020-08-17 19:00 | PC.NURSE ---
M/S not answering the phone for report at this time.
--- NOTE | 2020-08-17 19:37 | PC.NURSE ---
Report given to M/S RN by KIAN Evangelista. cad technician at prepare pt for transport to floor.
[2020-08-18] MEDS: Morphine Sulfate 4 MG/ML CARTRIDGE IVPUSH (00:47)
[2020-08-18] MEDS: Piperacillin Sodium/Tazobactam 3.375 GM in 0.9 % Sodium Chloride 50 ML IV ×2 (02:46→07:57)
[2020-08-18 02:56] VITALS: BP 96/50; PULSE 70; RESP 15; TEMP 36.9; O2SAT 94
[2020-08-18 07:17] LABS: MANUAL DIFF FLAG NO
[2020-08-18 07:23] LABS: Basophils Percent Auto 0.5 % (0-2); Eosinophils Absolute Auto 0.2 X10*3/uL (0.0-0.4); Eosinophils Percent Auto 2.4 % (0-4); Hematocrit 37.3 % (37-47); Hemoglobin 12.2 g/dl (12.0-16.0); Imm Gran Abs Auto 0.02 X10*3/uL (0.00-0.03); Imm Gran Pct Auto 0.3 % (0.0-0.4); Lymphocytes Absolute Auto 1.9 X10*3/uL (1.2-4.9); Lymphocytes Percent Auto 31.2 % (20-40); Mean Corpuscular HGB Conc 32.7 g/dl (31.0-35.0); Mean Corpuscular Hemoglobin 29.8 pg (27.0-33.0); Mean Corpuscular Volume 91.2 fL (80-98); Mean Platelet Volume 8.8 fL (9.4-12.3); Monocytes Absolute Auto 0.5 X10*3/uL (0.1-1.2); Monocytes Percent Auto 7.3 % (2-11); Neutrophils Absolute Auto 3.6 X10*3/uL (2.0-8.3); Neutrophils Percent Auto 58.3 % (45-73); Platelet Count 282 X10*3/uL (160-400); Red Blood Count 4.09 X10*6/uL (4.20-5.50); Red Cell Distribution Width 13.6 % (11.0-16.0); White Blood Count 6.1 X10*3/uL (4.8-10.8)
[2020-08-18 07:56] LABS: Anion Gap 14 (12-20); Blood Urea Nitrogen 13 mg/dL (9-16); Calcium 9.2 mg/dL (8.4-10.2); Carbon Dioxide 28 mmol/L (22-29); Chloride 102 mmol/L (96-108); Creatinine Clr Calc Pharmacy 94.5; Estimated Glomerular Filt Rate > 60; Glucose Random 106 mg/dL (60-115); Potassium 3.7 mmol/L (3.3-5.1); Sodium 140 mmol/L (135-145)
[2020-08-18] MEDS: Loratadine 10 MG TABLET PO (07:57)
[2020-08-18] MEDS: 0.9 % Sodium Chloride Flush 3 ML SYRINGE IVFLUSH (07:57)
[2020-08-18] MEDS: Omeprazole 20 MG CAPSULE.DR PO (07:57)
[2020-08-18 08:00] VITALS: BP 101/57; PULSE 66; RESP 16; TEMP 36.3; O2SAT 94
--- NOTE | 2020-08-18 08:53 | PM.DS ---
DS: Providers Provider Date of Service: 08/18/20 Date of admission: 08/17/20 01:55 Primary care physician: Unknown Physician Consults: 08/17/20 11:29 Consult to Infectious Diseases Routine Consulting Provider: Dena Escoto Reason for consultation: Dog bite cellulitis DS: Diagnosis Discharge Diagnosis (1) Cellulitis: Status: Acute (2) Dog bite: Status: Acute (3) Intractable pain: Status: Acute DS: Medications Discharge Medications Home Medications: Home Medications Medication Instructions Recorded Confirmed chlorthalidone 25 mg tablet 25 mg PO DAILY 11/25/19 08/17/20 loratadine 10 mg tablet 10 mg PO DAILY 11/25/19 08/17/20 omeprazole 20 mg capsule,delayed 20 mg PO DAILY 11/25/19 08/17/20 release DS: Summary Hospital Course Hospital Course: 49-year-old female with past medical history of hypertension who presents to the hospital with complaints of dog bite. Patient reports that her dog bit her on Sunday, in her right small finger, she started developing significant pain, as well as swelling of her right arm and decided to come to the hospital. Patient has a difficulty moving her hand due to the pain, denies any fever nausea vomiting no abdominal pain no chest pain, no shortness of breath, no lumps under her armpits, no trouble with moving her elbow. Denies any urinary symptoms and no lower extremity edema. No numbness weakness or tingling. On arrival to the ED patient hemodynamically stable with no significant abnormal vitals except for a heart rate of 105, blood pressure stable Labs are significant for WBC count of 8.8 otherwise unremarkable. She has an elevated ESR of 60 as well as CRP of 5.2. During her ED course, erythema increased from around her right small finger moving up to her wrist patient is also having significant pain intractable to pain medications Hospital course: Patient was admitted and treated with IV Zosyn with signficant improvment over the course of hospitalization. Erythema and redness have significantly improved and therefore will be changed to oral Augmentin for 7 more days. She is advised to the involved dog should be checked by a vet and to unsure that all immunization are uptodate. She has full full motion in the hand Time Spent with Patient Time attestation: Total time spent providing and/or coordinating discharge services: Discharge coordination time: Greater than 30 minutes Quality: Stroke Does the patient have a stroke diagnosis?: No Physical Exam Vital Signs: Vital Signs: Last Vital Signs Temp 97.3 F 08/18/20 08:00 Pulse 66 08/18/20 08:00 Resp 16 08/18/20 08:00 BP 101/57 L 08/18/20 08:00 Pulse Ox 94 08/18/20 08:00 Body Mass Index 33.1 Const: General: cooperative and no acute distress Orientation/consciousness: patient oriented x3 Eyes: General: appearance normal, both eyes and all related structures Resp: Effort & Inspection: normal respiratory effort and able to speak in complete sentences Auscultation: clear to auscultation bilaterally Cardio: Rate: regular rate Rhythm: regular rhythm GI: Palpation (GI): Soft to palpation Auscultation: normal bowel sounds Skin: Other: 08/17 08/18 General skin exam: no rashes or lesions noted Neuro: General: patient oriented x3 Cognition (Neuro): normal cognition Extrem: Other: Patient has a small cut on her right small finger, erythema, warmth, edema, minimal range of motion due to significant pain General: Yes normal to inspection and Yes no pedal edema DS: Data Data Completed and Pending Labs on day of discharge: Laboratory Results - last 24 hr 08/18/20 08/18/20 06:26 06:26 WBC 6.1 RBC 4.09 L Hgb 12.2 Hct 37.3 MCV 91.2 MCH 29.8 MCHC 32.7 RDW 13.6 Plt Count 282 MPV 8.8 L Immature Gran % (Auto) 0.3 Neut % (Auto) 58.3 Lymph % (Auto) 31.2 [place] % (Auto) 7.3 Eos % (Auto) 2.4 Baso % (Auto) 0.5 Lymph # (Auto) 1.9 [place] # (Auto) 0.5 Eos # (Auto) 0.2 Baso # (Auto) 0.0 Abs Immat Gran (auto) 0.02 Absolute Neuts (auto) 3.6 Absolute Nucleated RBC 0.000 Nucleated RBC % (auto) 0.0 Sodium 140 Potassium 3.7 Chloride 102 Carbon Dioxide 28 Anion Gap 14 BUN 13 Creatinine 0.79 Estim Creat Clear Calc 94.5 Estimated GFR > 60 Random Glucose 106 Calcium 9.2 D Preliminary micro results at discharge 08/17/20 00:48 Blood Culture - Preliminary Blood - Venous No growth after 24 hours. 08/17/20 00:48 Blood Culture - Preliminary Blood - Venous No growth after 24 hours. Discharge Plan Discharge Anticipated Discharge Date/Time: 08/18/20 08:48 Patient Disposition: Home, Self-Care Discharge Diagnosis: Cellulitis due to Dog bite Referrals: Physician,Unknown [Primary Care Provider] - 1 Week Discharge Medications: New amoxicillin-pot clavulanate [Augmentin] 875-125 mg tablet 1 tab PO Q12H Qty: 13 RF: 0 Continued chlorthalidone 25 mg tablet 25 mg PO DAILY RF: 0 omeprazole 20 mg capsule,delayed release(DR/EC) 20 mg PO DAILY RF: 0 loratadine [Allergy Relief (loratadine)] 10 mg tablet 10 mg PO DAILY RF: 0 Discharge Orders: Discharge Order (Routine); Ordered 08/18/20 Ordered By: Davion Corona Diet: advance to usual diet Activity on Discharge: As tolerated Stand Alone Forms: Patient Portal Discharge page Care Plan Goals: Full recovery from Dog bite Health Concerns: Cellulitis from Dog bite Plan of Treatment: Take Agumentin as tolerated, to make sure Dog is up todate on immunization and to take Dog to be checked by Vet Assessment: as above
--- NOTE | 2020-08-18 09:18 | MHC.CM.PN ---
PATIENT IS DISCHARGED HOME - SELF CARE. RN AWARE OF PLAN.
[2020-08-18] MEDS: Amoxicillin/Potassium Clav 875 MG TABLET PO (10:45)
== END 2020-08-18 11:24 | disposition home or self-care (01) | DRG 383 ==
LOC: HO.ED 08-17 02:01 → HO.EDOVER 08-17 06:23 → HO.S3 08-17 17:52
PROVIDERS: Admitting Provider Internal Medicine; Emergency Provider Emergency Medicine; Visit Provider Internal Medicine
DX: L03.113 Cellulitis of right upper limb (principal); I10 Essential (primary) hypertension; K21.9 Gastro-esophageal reflux disease without esophagitis; Z87.891 Personal history of nicotine dependence; Z79.899 Other long term (current) drug therapy
CPT/HCPCS: 36415; 80048; 83605; 85025; 85652; 86140; 87040; 99281; 99282; 99285; J1170; J2270; J2543

== ENCOUNTER 2022-02-03 11:24 | Outpatient (REF) | payer MEDICAID, SELFPAY ==
--- NOTE | ~2022-02-03 | MM_ITS ---
EXAMINATION: MM SCREENING DIGITAL BREAST TOMOSYNTHESIS, BILATERAL CLINICAL INFORMATION: Screening. Asymptomatic. The lifetime risk of breast cancer based on the Tyrer-Cuzick Model is 11%. COMPARISON: Mammography: 08/04/2020, 07/30/2019, 03/01/2018 TECHNIQUE: Digital breast tomosynthesis is performed in both the craniocaudal and mediolateral oblique views along with computer-aided detection (CAD). Synthesized 2D images are generated from the tomosynthesis. FINDINGS: There are scattered areas of fibroglandular density (ACR BI-RADS breast composition Category b). There are no significant masses, abnormal calcifications, or other abnormalities. Parenchymal pattern is similar to prior studies. There is no developing density or architectural abnormality. The axilla and skin contours are unremarkable. No significant changes. MM/MM tomosynthesis screening BI IMPRESSION: No mammographic evidence of malignancy. ASSESSMENT: BI-RADS 1: Negative RECOMMENDATION: Routine annual mammography screening. This patient's information was entered into a reminder system with a target due date for their next mammogram.
== END 2022-02-03 11:25 | disposition home or self-care (01) ==
LOC: HO.MAMMO 11:24
PROVIDERS: PCP Registered Nurse; Visit Provider Registered Nurse
DX: Z12.31 Encounter for screening mammogram for malignant neoplasm of breast (principal)
CPT/HCPCS: 77063; 77067